=== PATIENT | female | born 1965 ===

== ENCOUNTER 2023-04-28 07:02 | Day surgery (SDC) | payer OTHER ==
[~2023-04-28 07:02] MED LIST: CLONAZEPAM0.5 MG PO; COZAAR50 MG PO; CRESTOR10 MG PO; ESTAZOLAM2 MG PO; FAMOTI PO; GLYCOPYRROLATE2 MG PO; PANTOPRAZOLE SO40 M2 PO; VENLAFAXINE H37.5 M2 PO
[2023-04-28] MEDS ORDERED: MACROBID 100 M100 MG PO (11:21)
[2023-04-28] MEDS ORDERED: TRAM1TAB98 PO (11:22)
== END 2023-04-28 15:00 | disposition home or self-care (01) ==
LOC: CIR.AMB 07:02
PROVIDERS: ATTEND Obstetrics & Gynecology Gynecology
DX: N39.3 Stress incontinence (female) (male) (principal); N36.41 Hypermobility of urethra; N39.8 Other specified disorders of urinary system; I10 Essential (primary) hypertension; Z20.822 Contact with and (suspected) exposure to COVID-19; R07.9 Chest pain, unspecified
CPT/HCPCS: 57288; C1771